=== PATIENT | male | born 1960 | race Caucasian/White ===

== ENCOUNTER 2017-09-30 16:37 | Inpatient (IN) | payer MEDICARE, OTHER ==
[~2017-09-30] VITALS: Ht 172.7 cm; Wt 77.1 kg
--- NOTE | 2017-09-30 17:10 | NUR ---
pt medically cleared pt transfer to [facility] pending on room availability.
--- NOTE | 2017-09-30 17:26 | NUR ---
hospital dinner tray provided for pt.
[2017-09-30] MEDS ORDERED: BENZ1TAB7 PO (17:27)
[2017-09-30] MEDS ORDERED: PALI234D IM (17:27)
[2017-09-30] MEDS ORDERED: OXCA300T PO (17:27)
[2017-09-30] MEDS ORDERED: RISP3TAB14 PO (17:27)
--- NOTE | 2017-09-30 17:55 | NUR ---
pt transfered to [facility] in stable condition.
[2017-09-30] MEDS ORDERED: MAGNESIUM HYDROXIDE 30 ML LIQUID UDC PO PRN (18:30)
[2017-09-30] MEDS ORDERED: CLONAZEPAM 0.5 MG TABLET PO PRN (18:30)
[2017-09-30] MEDS ORDERED: ACETAMINOPHEN 325 MG TABLET PO PRN (18:30)
[2017-09-30] MEDS ORDERED: MAG HYDROX/AL HYDROX/SIMETH 30 ML LIQUID UDC PO PRN (18:30)
[2017-09-30 19:00] VITALS: BP 142/95
--- NOTE | 2017-09-30 19:19 | NUR ---
pt received from Er. report received from thom BOOKER. Rn states pt was admitted as danger to self and others. pt refused to have red groin and posterior leg rash. pt states that he came here to get an envega shot and pt states that he is full code. pt took a shower. pt vitals stable upon admission. all belongings list listed and signed. all other pertinent files signed and given to shift production supervisor nurse to continue. report given to shift production supervisor nurse.
[2017-09-30 20:03] VITALS: BP 152/68
[2017-09-30] MEDS: NICOTINE 21 MG/24HR PATCH TD SCH ×2 (20:10→21:30)
[2017-09-30] MEDS: ZOLPIDEM 5 MG TABLET PO PRN (21:31)
--- NOTE | 2017-09-30 22:00 | NUR ---
received to care at start of shift, asleep, in bed. per report, he came from the emergency room, a transfer from [facility], in [place]. according to the hold, he is homeless. he presented himself to [facility], requesting an invega shot. he stated that he had not taken his medications for bipolar disorder and depression, for 5 weeks. he was disheveled, covered in his own urine, stating that he was having hallucinations and hearing voices telling him to drink alcohol. he had slurred speech, and was yelling at the staff. he stated that if he was not hospitalized, "i could hurt someone", and "i slit my wrists 2 years ago, and might do it again" upon arrival on the unit at [place], he was cooperative, but refused to have pictures taken of his skin redness. he denied SI, or desire to harm self. he stated he was not hearing voices at this time. he went to sleep, after being assisted with a shower. he woke up at 2130, and was given a snack, and PRN ambien, for insomnia. as of 2199, he appears to be asleep. no distress noted. will continue to monitor closely.
--- NOTE | 2017-10-01 06:00 | NUR ---
slept 6.25 hours, total. continues to sleep. no distress noted.
[2017-10-01 07:30] VITALS: BP 155/88
[2017-10-01] MEDS: NICOTINE 21 MG/24HR PATCH TD SCH (08:59)
--- NOTE | 2017-10-01 10:41 | NUR ---
GPS/RN- patient observed frequently walking up and down in hallway responding to stimuli, shouting, PRN Klonopin offered, continue to monitor
--- NOTE | 2017-10-01 11:59 | NUR ---
GPS/RN- Patient seen by Dr Chen , discussed history, vitals reviewed, continue to monitor hypertension to see if he needs meds.
--- NOTE | 2017-10-01 12:14 | NUR ---
Firearms Report: Carpet Or Rug Layer Helper completed and submitted [employer] Firearms Report on 10/01/17 for Danger to Self and Danger to Others certifications.
[2017-10-01 15:39] VITALS: BP 130/73
[2017-10-01] MEDS: OXCARBAZEPINE 300 MG TABLET PO SCH (17:43)
[2017-10-01] MEDS: BENZTROPINE MESYLATE 0.5 MG TABLET PO SCH (17:43)
[2017-10-01 19:30] VITALS: BP_SYST 103; BP_SYST 155; BP_DIAS 52; BP_DIAS 96
[2017-10-01] MEDS: risperiDONE 1 MG TABLET PO SCH (20:34)
[2017-10-01 20:39] VITALS: BP 116/60
[2017-10-01] MEDS ORDERED: risperiDONE 1 MG/ML UDC PO SCH (21:00)
--- NOTE | 2017-10-02 06:11 | NUR ---
GPS:slept 7.5 hrs through the night. continues to sleep. no distress noted.
--- NOTE | 2017-10-02 06:19 | NUR ---
GPS: SHOWERED THIS MORNING.
[2017-10-02 07:30] VITALS: BP 142/87
[2017-10-02] MEDS: OXCARBAZEPINE 300 MG TABLET PO SCH ×2 (08:14→16:52)
[2017-10-02] MEDS: BENZTROPINE MESYLATE 0.5 MG TABLET PO SCH ×2 (08:15→16:52)
[2017-10-02] MEDS: risperiDONE 1 MG TABLET PO SCH ×2 (08:15→20:08)
[2017-10-02] MEDS: NICOTINE 21 MG/24HR PATCH TD SCH (08:16)
--- NOTE | 2017-10-02 14:16 | NUR ---
Initial Discharge Instructions: Patient is a homeless gentleman from [place]. Patient is looking for permanent housing at this time and will require assistance with placement. Spoke with pt's [place] Transportation Aide, Bertha Hoffmann ([phone]) who reports she would like to be involved in discharge planning, but reports a severe shortage of housing in [place] and wants to encourage pt to look for housing in [facility]. SW will continue to collaborate with pt, SW, and MD regarding appropriate discharge plans for this patient. SW will form a safe and proper discharge plan.
[2017-10-02 15:09] VITALS: BP 137/77
[2017-10-02 20:00] VITALS: BP 129/64
--- NOTE | 2017-10-03 06:15 | NUR ---
GPS: REMAIN CALM AND COOPERATIVE WITH MEDS AND CARE. SLEPT 8 HRS THROUGH THE NIGHT. CONTINUE PLAN OF CARE.
[2017-10-03 08:00] VITALS: BP 140/66
[2017-10-03] MEDS: BENZTROPINE MESYLATE 0.5 MG TABLET PO SCH ×2 (08:09→16:44)
[2017-10-03] MEDS: OXCARBAZEPINE 300 MG TABLET PO SCH ×2 (08:10→16:44)
[2017-10-03] MEDS: NICOTINE 21 MG/24HR PATCH TD SCH (08:10)
[2017-10-03] MEDS: risperiDONE 1 MG TABLET PO SCH ×2 (08:10→19:54)
[2017-10-03] MEDS: AMLODIPINE 5 MG TABLET PO SCH (12:37)
[2017-10-03 20:23] VITALS: BP 120/77
--- NOTE | 2017-10-03 20:57 | NUR ---
GPS/RN- Patient requesting another sandwich, one given 30min ago, patient needy and attention seeking easily irritable, labile when redirected, offered hydration.
[2017-10-03] MEDS: ZOLPIDEM 5 MG TABLET PO PRN (23:19)
[2017-10-04 07:30] VITALS: BP_SYST 117; BP_SYST 128; BP_DIAS 62; BP_DIAS 83
[2017-10-04] MEDS: OXCARBAZEPINE 300 MG TABLET PO SCH ×2 (09:13→16:27)
[2017-10-04] MEDS: AMLODIPINE 5 MG TABLET PO SCH (09:13)
[2017-10-04] MEDS: risperiDONE 1 MG TABLET PO SCH ×2 (09:14→21:30)
[2017-10-04] MEDS: NICOTINE 21 MG/24HR PATCH TD SCH (09:14)
[2017-10-04] MEDS: BENZTROPINE MESYLATE 0.5 MG TABLET PO SCH ×2 (09:14→16:30)
--- NOTE | 2017-10-04 14:12 | NUR ---
Patient was fine after he got his nicotine patch this am. He was agitated earlier when he was asking for pudding this am and he was saying that he was being ignored. He was fine now. Patient alert/oriented. Denies pain and discomfort. Able to express needs. Ambulates with steady gait. will monitor.
[2017-10-04 15:08] VITALS: BP 131/76
--- NOTE | 2017-10-04 17:47 | NUR ---
Patient ate his dinner. No SI or agitation noted. will monitor.
[2017-10-04 20:13] VITALS: BP 124/70
--- NOTE | 2017-10-04 22:34 | NUR ---
RECEIVED RESIDENT IN BED AWAKE.COMPLIANT WITH MEDS AND COOPERATIVE WITH STAFF FOR HIS CARE. DENIES HEARING VOICES.NO COMPLIANT OF PAIN OR DISCOMFORT.SAFETY EMPHASIZED. WILL CONTINUE TO MONITOR.
--- NOTE | 2017-10-05 06:45 | NUR ---
SLEPT INTERMITTENTLY FOR 6;30HRS.MEDS GIVEN. COMPLIANT WITH CARE.
[2017-10-05 07:30] VITALS: BP 122/77
[2017-10-05] MEDS: NICOTINE 21 MG/24HR PATCH TD SCH (08:17)
[2017-10-05] MEDS: AMLODIPINE 5 MG TABLET PO SCH (08:17)
[2017-10-05] MEDS: OXCARBAZEPINE 300 MG TABLET PO SCH ×2 (08:17→16:26)
[2017-10-05] MEDS: risperiDONE 1 MG TABLET PO SCH ×2 (08:18→21:00)
[2017-10-05] MEDS: BENZTROPINE MESYLATE 0.5 MG TABLET PO SCH ×2 (08:19→16:54)
--- NOTE | 2017-10-05 12:51 | NUR ---
Patient denies pain and discomfort. Compliant with his medical care/meds and diet. No SI, hallucination or delusions noted. Able to express needs and provided. Ambulates with steady gait. will monitor.
[2017-10-05 15:36] VITALS: BP 120/74
[2017-10-05 21:23] VITALS: BP 121/76
[2017-10-06 07:30] VITALS: BP 137/82
--- NOTE | 2017-10-06 07:30 | NUR ---
Patient awake alert oriented x4. In dining room, denies pain, discomfort or SOB. will monitor
[2017-10-06] MEDS: NICOTINE 21 MG/24HR PATCH TD SCH (08:06)
[2017-10-06 08:07] VITALS: BP 137/82
[2017-10-06] MEDS: AMLODIPINE 5 MG TABLET PO SCH (08:07)
[2017-10-06] MEDS: OXCARBAZEPINE 300 MG TABLET PO SCH (08:07)
[2017-10-06] MEDS: risperiDONE 1 MG TABLET PO SCH (08:08)
[2017-10-06] MEDS: BENZTROPINE MESYLATE 0.5 MG TABLET PO SCH (08:08)
--- NOTE | 2017-10-06 11:27 | NUR ---
Domestic Violence Counselor Discharge Planning Note: Met with patient in activities room to explore placement options. Informed patient of B&C option in [place], [place] within his budget. Patient reported, "I'll think about it...or I will take the bus back to [place]." SW will continue to follow-up.
--- NOTE | 2017-10-06 14:17 | NUR ---
Called in for pt's discharge prescriptions to Dr.Sharma Sveta aware of pt's discharge.
--- NOTE | 2017-10-06 14:37 | NUR ---
Discharge Note: Patient had his Probable Cause Hearing today and was released by the Mental Health Court. Patient is wishing to be released back to [facility]. Patient has refused placement in [facility], although it was offered to him. Patient has signed the Homeless Patient Waiver Form. Spoke with Allen Ford from [facility] ([phone]) who has agreed to arrange transportation for the patient. [facility] [place] [[address]; [phone]]. Spoke with Regulatory Auditor, Maldonado Frank ([phone]) to alert of patients wishes to be discharged there. Spoke with patients [facility] Regulatory Auditor, Bertha Cintron ([phone]) to alert about patients discharge. Spoke with patients [place] Metalworking Specialist, Ryan Ramirez ([phone]) from [facility] to alert about patients discharge. Patient will continue to follow-up with [facility] [[facility], [place] [address]; [phone]]. SW left a message for Metalworking Specialist, Doreen Ortiz at that facility. Patient was given referrals for Medicare-accepting Primary Care Physicians and Psychiatrists in his area. Patient was provided with the homeless skilled nursing packet, which includes a list of emergency shelters, housing resources, drop in centers, and showers/hot meals centers. This also included the Homeless Information Hotline (359)-307-0874 or 211, [place] for [employer] , and the [facility] (071)-497-8046. Patient was given outpatient mental health resources to [facility] (343-792-5429); [facility] (785-216-6647), and the National Suicide Prevention Lifeline (National Suicide Prevention Lifeline ). Patient was given outpatient substance abuse referrals to [facility] (421-720-7353); [facility] (025-896-9103); and [facility] National Helpline ( ). Addendum: 10/06/17 at 1438 by VINAY BUTLER For smoking cessation, patient was referred to [place] [employer] 800-LUNGUSA and [place] [employer] [phone].
--- NOTE | 2017-10-06 15:00 | NUR ---
GPS: Nursing Notes: Discharge Notes: Patient is awake and responding to his name, cooperative with nursing care, compliant with his medications, following staff directions, denies any SI/HI, denies any AH/VH, denies any pain or discomfort, denies any SOB. [facility] called for his medications per Dr. Osorio. Patient is discharge by the court today. Patient has been refusing placement in [facility]. Patient will be transported to the [facility] in [place] [[address]; [phone]]. furniture lumber production worker spoke with Farm Supervisor, Maldonado Frank ([phone]) to alert of patients wishes to be discharged there. Spoke with patients VA Farm Supervisor, Bertha Cintron ([phone]) to alert about patients discharge. Spoke with patients [place] Human Resources Intern, Ryan Ramirez ([phone]) from [facility] to alert about patients discharge. Patient will continue to follow-up with [facility] [[facility] [place] [address]; [phone]]. SW left a message for Human Resources Intern, Doreen Ortiz at that facility. Patient was given referrals for Medicare-accepting Primary Care Physicians and Psychiatrists in his area. Patient was provided with the homeless group home packet, which includes a list of emergency shelters, housing resources, drop in centers, and showers/hot meals centers. This also included the Homeless Information Hotline (031)-362-6274 or 211, [place] for [employer] [facility] [employer] (443)- 059-3908, and the [facility] (225)-267-2300. Patient was given outpatient mental health resources to [facility] (677-885-9427); [facility] (178-118-3798), and the National Suicide Prevention Lifeline (National Suicide Prevention Lifeline ). Patient was given outpatient substance abuse referrals to [facility] (934-399-4300); [facility] (924-694-8068); and [facility] National Helpline ( ). For smoking cessation, patient was referred to [place] [employer] 800-LUNGUSA and [place] [employer] [phone].
== END 2017-10-06 15:00 | disposition home or self-care (01) | DRG 885 ==
LOC: ER 16:37 → GPS 17:38
PROVIDERS: ADMIT Psychiatry & Neurology Psychiatry
DX: F25.0 Schizoaffective disorder, bipolar type (principal); F17.210 Nicotine dependence, cigarettes, uncomplicated; K74.60 Unspecified cirrhosis of liver; Z86.19 Personal history of other infectious and parasitic diseases; F15.10 Other stimulant abuse, uncomplicated; Z79.899 Other long term (current) drug therapy; Z95.1 Presence of aortocoronary bypass graft; Z87.828 Personal history of other (healed) physical injury and trauma; Z96.89 Presence of other specified functional implants; Z91.14 Patient's other noncompliance with medication regimen; I25.2 Old myocardial infarction; I10 Essential (primary) hypertension
CPT/HCPCS: 93005; A4663